=== PATIENT | male | born 1935 | race Asian ===

== ENCOUNTER → 2018-03-28 | Emergency (ER) | payer MEDICARE, BC | END | disposition left against medical advice (07) | LOC: EDUNIT# 04:19 → EDBD 04:24 → ER 04:24 → EDSEX 04:24 | DX: R06.02 Shortness of breath (principal); Z53.21 Procedure and treatment not carried out due to patient leaving prior to being seen by health care provider ==

== ENCOUNTER 2022-01-22 01:06 | Inpatient (IN) | payer OTHER, MEDICAID ==
[~2022-01-22] VITALS: Ht 157.5 cm; Wt 73.7 kg
[2022-01-22] MEDS ORDERED: ALBUTEROL SULF 2.5 MG/0.5ML(0.5%) NEB SOLN NEB ONE (01:30)
[2022-01-22] MEDS ORDERED: IPRATROPIUM BROM 0.5 MG/2.5ML INH SOL NEB ONE (01:30)
[2022-01-22] MEDS ORDERED: methylPREDNISolone SOD SUCC 125 MG/2 ML VL IV ONE (01:30)
[2022-01-22 02:19] LABS: Urine Bacteria MOD /hpf (None Seen); Urine Blood 3+ /uL (Negative); Urine Specific Gravity 1.017 (1.001-1.035); Urine WBC 109 /hpf (0 - 3)
[2022-01-22 02:42] LABS: Hemoglobin 11.6 g/dL (13.5-17.5)
[2022-01-22 02:44] LABS: Hematocrit 35.8 % (41.0-53.0); Mean Corpuscular Hemoglobin 29.9 pg (28.0-32.0); Mean Corpuscular Hgb Conc. 32.5 g/dL (32.0-36.0); Mean Corpuscular Volume 92.1 fL (80.0-100.0); Red Blood Cells 3.89 10^6/uL (4.5-5.90); Red Cell Distribution Width 14.4 % (11.8-14.3)
[2022-01-22 02:51] LABS: White Blood Cell 1.8 10^3/uL (4.4-10.8)
[2022-01-22 02:53] LABS: Basophils % (manual) 0 (0.0-2.0); Blast Cells 0; Eosinophils % (manual) 0 (0-7); Promyelocytes % 0; Reactive Lymphocytes 0
[2022-01-22 03:03] LABS: Albumin 3.1 g/dL (3.4-5.0); Calcium 8.9 mg/dL (8.5-10.1); Potassium 4.5 mmol/L (3.5-5.1)
[2022-01-22 03:05] LABS: BUN/Creatinine Ratio 13.2
[2022-01-22 03:14] LABS: Bilirubin, Total 1.1 mg/dL (0.2-1.0); Total Protein 6.5 g/dL (6.4-8.2)
[2022-01-22] MEDS ORDERED: VANCOMYCIN 1GM/250ML 250 ML IV ONE (03:15)
[2022-01-22] MEDS ORDERED: cefTRIAXone 1GM/50ML D5W 50 ML IV ONE (03:15)
[2022-01-22 04:26] LABS: Band Neutrophils % (manual) 29; Lymphocytes % (manual) 9 (10.0-50.0); Metamyelocytes % 1; Monocytes % (manual) 3 (0-12); Myelocytes % 2
[2022-01-22] MEDS ORDERED: SODIUM CHLORIDE 0.9% 1,000 ML IV ONE ×2 (06:15→09:00)
[2022-01-22] MEDS ORDERED: SOD CHL 0.45% 1,000 ML IV ONE (06:45)
[2022-01-22] MEDS ORDERED: NITROGLYCERIN 0.4 MG SL TAB SL PRN (06:45)
[2022-01-22] MEDS ORDERED: MORPHINE SULFATE INJ 2 MG/ml SYRG IV PRN (06:45)
[2022-01-22 06:58] VITALS: BP 88/50
[2022-01-22] MEDS ORDERED: DEXTROSE (50%) 50ML SYRG IV PRN (07:00)
[2022-01-22 07:12] LABS: INR 0.97 (0.9-1.15)
[2022-01-22] MEDS ORDERED: VANCOMYCIN PER PHARMACY 0 MG IV SCH (07:15)
[2022-01-22] MEDS: ACCU-CHEK COMFORT CURVE STRIP VI SCH ×4 (08:18→22:00)
[2022-01-22] MEDS: InsuLIN REG 1unit/0.01ml Soln (100units/ml) SC SCH ×4 (08:18→23:30)
[2022-01-22] MEDS: ALBUMIN 25% 100 ML IV SCH ×3 (08:19→22:37)
[2022-01-22] MEDS: levoFLOXacin 500MG 100 ML IV SCH ×2 (09:47→10:00)
[2022-01-22] MEDS ORDERED: ALBUTEROL SULF 2.5 MG/0.5ML(0.5%) NEB SOLN ONE (13:22)
[2022-01-22] MEDS ORDERED: IPRATROPIUM BROM 0.5 MG/2.5ML INH SOL ONE (13:22)
[2022-01-22] MEDS: IPRATROPIUM BROM 0.5 MG/2.5ML INH SOL NEB SCH ×2 (13:23→18:42)
[2022-01-22] MEDS: ALBUTEROL SULF 2.5 MG/0.5ML(0.5%) NEB SOLN NEB SCH ×2 (13:23→18:42)
[2022-01-22 22:27] VITALS: BP 108/65
[2022-01-23] VITALS (8 sets, daily range): BP systolic 102–115; BP diastolic 52–72
[2022-01-23] MEDS ORDERED: LEVO25TA6 PO (01:36)
[2022-01-23] MEDS ORDERED: INSUINJ37 SC (01:36)
[2022-01-23] MEDS ORDERED: AMLO-489 PO (01:36)
[2022-01-23] MEDS ORDERED: LISI-716 PO (01:36)
[2022-01-23] MEDS ORDERED: ATOR10TA52 PO (01:36)
[2022-01-23] MEDS ORDERED: GLIP10TA9 PO (01:36)
[2022-01-23] MEDS: ALBUTEROL SULF 2.5 MG/0.5ML(0.5%) NEB SOLN NEB SCH ×4 (06:00→18:00)
[2022-01-23] MEDS: IPRATROPIUM BROM 0.5 MG/2.5ML INH SOL NEB SCH ×4 (06:00→18:00)
[2022-01-23] MEDS: ACCU-CHEK COMFORT CURVE STRIP VI SCH ×4 (06:07→22:14)
[2022-01-23] MEDS: InsuLIN REG 1unit/0.01ml Soln (100units/ml) SC SCH ×4 (06:10→22:32)
[2022-01-23 07:54] LABS: Albumin 3.5 g/dL (3.4-5.0); Calcium 8.3 mg/dL (8.5-10.1); Potassium 4.9 mmol/L (3.5-5.1)
[2022-01-23 07:57] LABS: BUN/Creatinine Ratio 17.4
[2022-01-23 07:58] LABS: Bilirubin, Total 0.5 mg/dL (0.2-1.0); Total Protein 6.6 g/dL (6.4-8.2)
[2022-01-23 09:38] LABS: Basophils # (auto) 0 10 ^3/uL (0-0.2); Basophils % (auto) 0.2 % (0.0-2.0); Eosinophils # (auto) 0.1 10 ^3/uL (0-0.8); Eosinophils % (auto) 0.6 % (0.0-7.0); Hematocrit 30.4 % (41.0-53.0); Hemoglobin 9.8 g/dL (13.5-17.5); Lymphocytes # (auto) 0.4 10 ^3/uL (0.4-5.4); Lymphocytes % (auto) 2.5 % (10.0-50.0); Mean Corpuscular Hemoglobin 29.4 pg (28.0-32.0); Mean Corpuscular Hgb Conc. 32.2 g/dL (32.0-36.0); Mean Corpuscular Volume 91.2 fL (80.0-100.0); Monocytes # (auto) 1.4 10 ^3/uL (0-1.3); Monocytes % (auto) 8.6 % (0.0-12.0); Neutrophils # (auto) 14.5 10 ^3/uL (1.6-8.6); Neutrophils % (auto) 88.1 % (37.0-80.0); Red Blood Cells 3.33 10^6/uL (4.5-5.90); Red Cell Distribution Width 15.1 % (11.8-14.3)
[2022-01-23 09:51] LABS: White Blood Cell 16.4 10^3/uL (4.4-10.8)
[2022-01-23 09:54] LABS: Basophils % (manual) 0 (0.0-2.0); Blast Cells 0; Eosinophils % (manual) 0 (0-7); Myelocytes % 0; Promyelocytes % 0; Reactive Lymphocytes 0
[2022-01-23] MEDS ORDERED: levoFLOXacin 500MG 100 ML IV SCH (10:00)
[2022-01-23] MEDS: levoFLOXacin 500MG 100 ML IV SCH (10:05)
[2022-01-23 10:53] LABS: Band Neutrophils % (manual) 14; Lymphocytes % (manual) 1 (10.0-50.0); Metamyelocytes % 2; Monocytes % (manual) 10 (0-12)
[2022-01-23] MEDS ORDERED: EMPA1TAB3 PO (12:08)
[2022-01-23] MEDS: MEROPENEM 500MG IVPB 50 ML IV SCH ×2 (13:17→22:13)
[2022-01-23 14:57] LABS: Protein, Urine 108.7 mg/dL (0.0-11.9)
[2022-01-23] MEDS: LINEZOLID 600MG/300ML 300 ML IV SCH (21:02)
[2022-01-24] MEDS: ALBUTEROL SULF 2.5 MG/0.5ML(0.5%) NEB SOLN NEB SCH ×2 (00:36→06:18)
[2022-01-24] MEDS: IPRATROPIUM BROM 0.5 MG/2.5ML INH SOL NEB SCH ×2 (00:36→06:18)
[2022-01-24 04:51] VITALS: BP 110/64
[2022-01-24 05:18] LABS: Basophils # (auto) 0 10 ^3/uL (0-0.2); Basophils % (auto) 0.2 % (0.0-2.0); Eosinophils # (auto) 0 10 ^3/uL (0-0.8); Hematocrit 32.2 % (41.0-53.0); Hemoglobin 10.4 g/dL (13.5-17.5); Lymphocytes # (auto) 0.8 10 ^3/uL (0.4-5.4); Lymphocytes % (auto) 5.2 % (10.0-50.0); Mean Corpuscular Hemoglobin 29.6 pg (28.0-32.0); Mean Corpuscular Hgb Conc. 32.4 g/dL (32.0-36.0); Mean Corpuscular Volume 91.5 fL (80.0-100.0); Monocytes # (auto) 1.1 10 ^3/uL (0-1.3); Monocytes % (auto) 7.6 % (0.0-12.0); Nucleated Red Blood Cells % 0.1 %; Red Blood Cells 3.52 10^6/uL (4.5-5.90); Red Cell Distribution Width 14.7 % (11.8-14.3); White Blood Cell 14.9 10^3/uL (4.4-10.8)
[2022-01-24 05:36] LABS: Albumin 3.4 g/dL (3.4-5.0); Calcium 8.5 mg/dL (8.5-10.1); Potassium 4.4 mmol/L (3.5-5.1)
[2022-01-24 05:39] LABS: Bilirubin, Total 0.5 mg/dL (0.2-1.0); Total Protein 6.5 g/dL (6.4-8.2)
[2022-01-24] MEDS ORDERED: IPRATROPIUM BROM 0.5 MG/2.5ML INH SOL ONE ×2 (05:53→11:52)
[2022-01-24] MEDS ORDERED: ALBUTEROL SULF 2.5 MG/0.5ML(0.5%) NEB SOLN ONE ×2 (05:53→11:52)
[2022-01-24] MEDS: ACCU-CHEK COMFORT CURVE STRIP VI SCH ×2 (06:57→11:30)
[2022-01-24] MEDS: InsuLIN REG 1unit/0.01ml Soln (100units/ml) SC SCH ×2 (06:58→11:30)
[2022-01-24 07:54] VITALS: BP 115/64
[2022-01-24] MEDS: LINEZOLID 600MG/300ML 300 ML IV SCH (08:00)
[2022-01-24] MEDS: MEROPENEM 500MG IVPB 50 ML IV SCH (09:58)
[2022-01-24] MEDS ORDERED: LEVO500T31 PO (12:34)
[2022-01-24 12:37] VITALS: BP 126/67
[2022-01-24] MEDS ORDERED: TAMIF30 PO (12:37)
[2022-01-24] MEDS ORDERED: MEROPENEM 1GM IVPB 100 ML IV SCH (22:00)
== END 2022-01-24 14:30 | disposition home or self-care (01) | DRG 193 ==
LOC: EDBD 01:06 → ER 01:10 → TELE 06:32 → UNDOADMIN 06:32 → TELE 06:32 → TELE-WESTW 21:05 → OBSVTOIN 01-24 10:02
PROVIDERS: ADMIT Internal Medicine; ATTEND Internal Medicine
DX: J10.1 Influenza due to other identified influenza virus with other respiratory manifestations (principal); I21.A1 Myocardial infarction type 2; J96.00 Acute respiratory failure, unspecified whether with hypoxia or hypercapnia; N39.0 Urinary tract infection, site not specified; N17.9 Acute kidney failure, unspecified; I95.9 Hypotension, unspecified; N18.9 Chronic kidney disease, unspecified; D72.819 Decreased white blood cell count, unspecified; D63.1 Anemia in chronic kidney disease; Z20.822 Contact with and (suspected) exposure to COVID-19; E03.9 Hypothyroidism, unspecified; E11.22 Type 2 diabetes mellitus with diabetic chronic kidney disease; E11.65 Type 2 diabetes mellitus with hyperglycemia; I12.9 Hypertensive chronic kidney disease with stage 1 through stage 4 chronic kidney disease, or unspecified chronic kidney disease; Z83.3 Family history of diabetes mellitus; Z86.73 Personal history of transient ischemic attack (TIA), and cerebral infarction without residual deficits; Z82.5 Family history of asthma and other chronic lower respiratory diseases; Z88.0 Allergy status to penicillin
CPT/HCPCS: 36415; 36600; 71045; 71250; 76775; 78582; 80053; 80202; 81001; 82570; 82805; 82962; 83970; 84100; 84156; 84300; 84484; 85007; 85025; 85027; 85610; 87040; 87086; 87426; 87804; 93005; 93306; 94640; 96361; 96365; 96366; 96368; 96375; G0378; J0696; J1815; J1956; J2185; P9047